=== PATIENT | male | born 1955 | race Caucasian/White ===

== ENCOUNTER 2023-01-19 17:23 | Emergency (ER) | payer MEDICAID, MEDICARE, OTHER ==
[~2023-01-19] VITALS: Ht 177.8 cm; Wt 88.0 kg
[2023-01-19] MEDS ORDERED: LYRI200C PO (17:40)
[2023-01-19] MEDS ORDERED: BACL1TAB8 PO (17:40)
[2023-01-19] MEDS ORDERED: LORazepam 2 MG TAB PO PRN (22:30)
[2023-01-19] MEDS ORDERED: THIAMINE 100 MG TAB PO SCH (22:30)
[2023-01-19 22:40] LABS: BASO % 0.4 % (0.0-1.0); EOS # 0.2 10^3/uL (0.0-0.5); EOS % 3.1 % (0.0-3.0); HEMATOCRIT 43.8 % (42.0-52.0); HEMOGLOBIN 14.7 g/dl (13.5-17.5); LYMPH # 2.3 10^3/uL (1.5-5.0); LYMPH % 34.2 % (24.0-44.0); MEAN CORPUSCULAR HEMOGLOBIN 31.3 pg (27.0-33.0); MEAN CORPUSCULAR HGB CONC 33.6 g/dl (32.0-36.5); MEAN CORPUSCULAR VOLUME 93.2 fl (80.0-96.0); MONO # 0.6 10^3/uL (0.0-0.8); MONO % 8.9 % (2.0-8.0); NEUTROPHILS # 3.6 10^3/uL (1.5-8.5); NEUTROPHILS % 53.1 % (36.0-66.0); PLATELET COUNT, AUTOMATED 179 10^3/uL (150-450); WHITE BLOOD COUNT 6.7 10^3/uL (4.0-10.0)
[2023-01-19 23:03] LABS: ETHYL ALCOHOL (ETHANOL) 0.007 % (0.000-0.010)
[2023-01-19 23:05] LABS: SALICYLATE LEVEL < 3.0 MG/DL (<30)
[2023-01-19 23:17] LABS: ALBUMIN 3.6 G/DL (3.2-5.2); ALKALINE PHOSPHATASE 137 U/L (46-116); ALT/SGPT 15 U/L (7.0-40); AST/SGOT 35 U/L (<34); BILIRUBIN,DIRECT < 0.1 MG/DL (<0.4); BILIRUBIN,TOTAL 0.4 MG/DL (0.3-1.2); BLOOD UREA NITROGEN 22 MG/DL (9-23); CALCIUM LEVEL 9.1 MG/DL (8.3-10.6); CARBON DIOXIDE LEVEL 26 MMOL/L (20-31); CHLORIDE LEVEL 105 MMOL/L (98-107); CK-MB VALUE MASS < 1.0 NG/ML (<3.6); CPK CREATINE PHOSPHOKINASE 106 U/L (46-171); CREATININE FOR GFR 0.81 MG/DL (0.70-1.30); GLOMERULAR FILTRATION RATE > 60.0 (>49); GLUCOSE, FASTING 107 MG/DL (74-106); MB/CK RELATIVE INDEX 0.94 (< OR =4); POTASSIUM SERUM 5.7 MMOL/L (3.5-5.1); SODIUM LEVEL 139 MMOL/L (136-145); THYROID STIMULATING HORMONE 1.563 uIU/ML (0.55-4.78)
[2023-01-20 00:56] LABS: RSV AMPLIFICATION NEGATIVE (NEGATIVE)
[2023-01-20 03:20] LABS: BARBITURATES URINE NEGATIVE (NEGATIVE); BENZODIAZEPINES URINE NEGATIVE (NEGATIVE); COCAINE METABOLITE URINE NEGATIVE (NEGATIVE); METHADONE URINE NEGATIVE (NEGATIVE); OPIATES URINE NEGATIVE (NEGATIVE)
[2023-01-20 03:21] LABS: AMPHETAMINES LEVEL URINE POSITIVE (NEGATIVE); CANNABINOIDS URINE POSITIVE (NEGATIVE); PHENCYCLIDINE URINE NEGATIVE (NEGATIVE)
[2023-01-20] MEDS: OXAZEPAM 15MG CAP PO ONE ×2 (04:40→05:58)
[2023-01-20] MEDS ORDERED: ACETAMINOPHEN TAB 650MG DOSE (2X325MG) PO ONE (05:45)
[2023-01-20 07:34] VITALS: BP 101/73; TEMP 97.2; O2SAT 96
[2023-01-20] MEDS ORDERED: FOLIC ACID 1MG TAB PO SCH (09:00)
[2023-01-20] MEDS ORDERED: MULTIVITAMINS/MINERALS THERAP 1 TAB PO SCH (09:00)
== END 2023-01-20 07:39 | disposition home or self-care (01) ==
LOC: M ED 17:23
DX: F32.A Depression, unspecified (principal); M54.50 Low back pain, unspecified; J44.9 Chronic obstructive pulmonary disease, unspecified; F41.9 Anxiety disorder, unspecified; F17.200 Nicotine dependence, unspecified, uncomplicated; F10.10 Alcohol abuse, uncomplicated; Y04.0XXA Assault by unarmed brawl or fight, initial encounter; Z91.030 Bee allergy status; Z91.040 Latex allergy status; Z79.891 Long term (current) use of opiate analgesic; Z79.899 Other long term (current) drug therapy

== ENCOUNTER 2023-07-23 07:54 | Emergency (ER) | payer OTHER ==
[~2023-07-23] VITALS: Ht 177.8 cm; Wt 87.1 kg
[~2023-07-23 07:54] MED LIST: BACL1TAB8 PO; LYRI200C PO
[2023-07-23] MEDS: NS 1,000 ML IV ONE (09:41)
[2023-07-23] MEDS: OXAZEPAM 15MG CAP PO ONE (09:41)
[2023-07-23] MEDS: MULTIVITAMINS/MINERALS THERAP 1 TAB PO SCH (09:41)
[2023-07-23] MEDS: THIAMINE 100 MG TAB PO SCH (09:41)
[2023-07-23] MEDS: ONDANSETRON 4MG 2ML VIAL IV ONE (09:41)
[2023-07-23] MEDS: FOLIC ACID 1MG TAB PO SCH (09:41)
[2023-07-23 09:46] LABS: BASO # 0.1 10^3/uL (0.0-0.2); BASO % 0.6 % (0.0-1.0); EOS # 0.1 10^3/uL (0.0-0.5); EOS % 1.1 % (0.0-3.0); HEMATOCRIT 45.1 % (42.0-52.0); HEMOGLOBIN 15.5 g/dl (13.5-17.5); LYMPH # 1.9 10^3/uL (1.5-5.0); LYMPH % 21.5 % (24.0-44.0); MEAN CORPUSCULAR HEMOGLOBIN 32.2 pg (27.0-33.0); MEAN CORPUSCULAR HGB CONC 34.4 g/dl (32.0-36.5); MEAN CORPUSCULAR VOLUME 93.6 fl (80.0-96.0); MONO # 0.5 10^3/uL (0.0-0.8); NEUTROPHILS # 6.4 10^3/uL (1.5-8.5); NEUTROPHILS % 70.6 % (36.0-66.0); PLATELET COUNT, AUTOMATED 261 10^3/uL (150-450); RED BLOOD COUNT 4.82 10^6/uL (4.30-6.10)
[2023-07-23 09:57] LABS: INR 0.98; PROTHROMBIN TIME 12.7 SECONDS (12.5-14.5)
[2023-07-23 10:19] LABS: LIPASE 40 U/L (12-53)
[2023-07-23 10:21] LABS: ALBUMIN 3.6 G/DL (3.2-5.2); ALKALINE PHOSPHATASE 121 U/L (46-116); ALT/SGPT 16 U/L (7.0-40); AST/SGOT 19 U/L (<34); BILIRUBIN,DIRECT 0.2 MG/DL (<0.4); BILIRUBIN,TOTAL 0.5 MG/DL (0.3-1.2); BLOOD UREA NITROGEN 14 MG/DL (9-23); CALCIUM LEVEL 9.1 MG/DL (8.3-10.6); CARBON DIOXIDE LEVEL 23 MMOL/L (20-31); CHLORIDE LEVEL 108 MMOL/L (98-107); CREATININE FOR GFR 0.69 MG/DL (0.70-1.30); GLOMERULAR FILTRATION RATE > 60.0 (>49); GLUCOSE, FASTING 77 MG/DL (74-106); MAGNESIUM LEVEL 1.6 MG/DL (1.8-2.4); POTASSIUM SERUM 4.7 MMOL/L (3.5-5.1); SODIUM LEVEL 141 MMOL/L (136-145); TOTAL PROTEIN 6.9 G/DL (5.7-8.2)
[2023-07-23] MEDS: LORazepam 2 MG TAB PO PRN (10:58)
[2023-07-23 11:22] LABS: ETHYL ALCOHOL (ETHANOL) < 0.003 % (0.000-0.010)
[2023-07-23] MEDS: MAG SULF 1GM/100ML (MAG RUN) 1 GM in IV 1 EA IV ONE (12:40)
[2023-07-23 13:49] VITALS: BP 119/73; TEMP 98.2; O2SAT 95
== END 2023-07-23 13:54 | disposition home or self-care (01) ==
LOC: EDBD 07:54 → M ED 07:54
DX: F10.10 Alcohol abuse, uncomplicated (principal); F43.81 Prolonged grief disorder; J44.9 Chronic obstructive pulmonary disease, unspecified; F32.A Depression, unspecified; Z91.030 Bee allergy status; Z88.6 Allergy status to analgesic agent; Z91.040 Latex allergy status; Z79.891 Long term (current) use of opiate analgesic; Z79.899 Other long term (current) drug therapy
CPT/HCPCS: 80048; 80076; 82077; 83690; 83735; 85025; 85610; 93005; 93041; 96374; 96375; 99285; J2405; J3475

== ENCOUNTER 2023-09-05 09:16 | Emergency (ER) | payer OTHER ==
[~2023-09-05] VITALS: Ht 177.8 cm; Wt 89.0 kg
[2023-09-05 09:25] VITALS: TEMP 97.6
[2023-09-05] MEDS ORDERED: TAMS1CAP17 (09:29)
[2023-09-05] MEDS ORDERED: OMEP40CA5 (09:29)
[2023-09-05] MEDS ORDERED: DOXE10CA (09:29)
[2023-09-05] MEDS ORDERED: ATOR1TAB19 (09:29)
[2023-09-05] MEDS ORDERED: ANOR1AER (09:29)
[2023-09-05] MEDS ORDERED: CELE1CAP99 (09:29)
[2023-09-05] MEDS ORDERED: ALBU8.5H (09:29)
[2023-09-05] MEDS ORDERED: FLUTISP (09:29)
[2023-09-05 09:45] VITALS: BP 149/77; O2SAT 92
== END 2023-09-05 10:11 | disposition home or self-care (01) ==
LOC: M ED 09:16 → EDBD 09:16 → M ED 10:11
DX: R10.9 Unspecified abdominal pain (principal); J44.9 Chronic obstructive pulmonary disease, unspecified; F10.10 Alcohol abuse, uncomplicated; F19.10 Other psychoactive substance abuse, uncomplicated; F32.A Depression, unspecified; F17.200 Nicotine dependence, unspecified, uncomplicated; Z88.6 Allergy status to analgesic agent; Z91.040 Latex allergy status; Z91.030 Bee allergy status; Z86.79 Personal history of other diseases of the circulatory system; Z79.52 Long term (current) use of systemic steroids; Z79.02 Long term (current) use of antithrombotics/antiplatelets; Z79.899 Other long term (current) drug therapy

== ENCOUNTER 2023-09-14 18:02 | Emergency (ER) | payer MEDICAID, MEDICARE, OTHER ==
[~2023-09-14] VITALS: Ht 177.8 cm; Wt 84.4 kg
[~2023-09-14 18:02] MED LIST changes: +ALBU8.5H; +ANOR1AER; +ATOR1TAB19; +CELE1CAP99; +DOXE10CA; +FLUTISP; +OMEP40CA5; +TAMS1CAP17
[2023-09-14] MEDS: FLUORESCEIN OPHTH 1MG STRIP OS ONE (19:20)
[2023-09-14] MEDS ORDERED: OCUF0.25 OP (19:43)
[2023-09-14 20:10] VITALS: BP 139/77; TEMP 96.7; O2SAT 94
== END 2023-09-14 20:10 | disposition home or self-care (01) ==
LOC: M ED 18:02 → EDBD 18:02 → M ED 20:10
DX: S06.0X0A Concussion without loss of consciousness, initial encounter (principal); S05.00XA Injury of conjunctiva and corneal abrasion without foreign body, unspecified eye, initial encounter; Y92.9 Unspecified place or not applicable; Y93.9 Activity, unspecified; Y99.9 Unspecified external cause status; W18.2XXA Fall in (into) shower or empty bathtub, initial encounter; K21.9 Gastro-esophageal reflux disease without esophagitis; J44.9 Chronic obstructive pulmonary disease, unspecified; F41.9 Anxiety disorder, unspecified; E78.5 Hyperlipidemia, unspecified; F17.210 Nicotine dependence, cigarettes, uncomplicated; F12.10 Cannabis abuse, uncomplicated; F10.10 Alcohol abuse, uncomplicated; Z88.8 Allergy status to other drugs, medicaments and biological substances; Z91.040 Latex allergy status; Z91.030 Bee allergy status; Z79.51 Long term (current) use of inhaled steroids; Z79.899 Other long term (current) drug therapy